=== PATIENT | male | born 1980 | race Caucasian/White ===

== ENCOUNTER 2023-05-26 22:46 | Emergency (ER) | payer MEDICAID ==
[~2023-05-26] VITALS: Ht 172.7 cm; Wt 96.6 kg
[2023-05-26 22:58] VITALS: BP 142/78; PULSE 98; RESP 16; TEMP 97.3; O2SAT 99
[2023-05-26] MEDS ORDERED: DIPH25TA53 PO (23:59)
[2023-05-26] MEDS ORDERED: HYD2.5O TP (23:59)
[2023-05-27 00:07] VITALS: BP 142/78; PULSE 98; RESP 16; TEMP 97.3; O2SAT 99
== END 2023-05-27 00:07 | disposition home or self-care (01) ==
LOC: MED 22:46
DX: L50.9 Urticaria, unspecified (principal); Z79.899 Other long term (current) drug therapy
CPT/HCPCS: 99282

== ENCOUNTER 2023-12-15 14:30 | Emergency (ER) | payer MEDICAID ==
[~2023-12-15] VITALS: Ht 172.7 cm; Wt 96.3 kg
[~2023-12-15 14:30] MED LIST: DIPH25TA53 PO; HYD2.5O TP
[2023-12-15 14:34] VITALS: BP 145/95; PULSE 85; RESP 20; TEMP 98.1; O2SAT 96
[2023-12-15] MEDS: DEXAMETHASONE 10 MG/ML VIAL IM ONE (16:51)
[2023-12-15] MEDS ORDERED: PROM473S5 PO (16:55)
[2023-12-15] MEDS ORDERED: BENZ-300 PO (16:55)
[2023-12-15] MEDS ORDERED: AMOX1TAB8 PO (16:55)
[2023-12-15 17:04] VITALS: BP 128/87; PULSE 92; RESP 18; TEMP 98.1; O2SAT 96
== END 2023-12-15 17:04 | disposition home or self-care (01) ==
LOC: MED 14:30
DX: J18.9 Pneumonia, unspecified organism (principal); R03.0 Elevated blood-pressure reading, without diagnosis of hypertension; Z79.2 Long term (current) use of antibiotics; Z79.899 Other long term (current) drug therapy
CPT/HCPCS: 71045; 96372; 99283; J1100